=== PATIENT | male | born 1995 | race African-American/Black ===

== ENCOUNTER 2018-05-04 10:17 | Emergency (ER) | payer MEDICAID ==
[~2018-05-04] VITALS: Ht 185.4 cm; Wt 81.6 kg
[2018-05-04] MEDS ORDERED: OXYMETAZOLINE 0.05% NASAL SPRAY 15ML BOTTLE. NS ONE (10:45)
--- NOTE | 2018-05-04 10:56 | PHYS DOC ---
Past History Past Medical History: No Pertinent History Past Surgical History: No Surgical History Smoking: Non-smoker Alcohol Use: None Drug Use: None Adult General Chief Complaint Chief Complaint: NOSEBLEED HPI HPI Patient is a 23 year old male who presents with complaining of nosebleed. Patient states he had history of frequent episodes of epistaxis since childhood that partially improved. Patient states he had nasal congestion and cold symptoms recently. Patient states he was playing basketball yesterday and had left sided nasal bleeding that last about couple hours. Patient states he had another episode of nosebleed since 9 AM today during playing basketball and his assistant football coach recommended to come to emergency room because it did not stop yesterday. Patient denies bleeding problem, other bleeding, injury. Review of Systems Review of Systems Constitutional: Denies fever or chills [] Eyes: Denies change in visual acuity, redness, or eye pain [] HENT: Reports nasal congestion . Respiratory: Denies cough or shortness of breath [] Cardiovascular: No additional information not addressed in HPI [] GI: Denies abdominal pain, nausea, vomiting, bloody stools or diarrhea [] : Denies dysuria or hematuria [] Musculoskeletal: Denies back pain or joint pain [] Integument: Denies rash or skin lesions [] Neurologic: Denies headache, focal weakness or sensory changes [] Endocrine: Denies polyuria or polydipsia [] All other systems were reviewed and found to be within normal limits, except as documented in this note. Current Medications Current Medications Current Medications Medications (Trade) Dose Ordered Sig/Farooq Start Time Stop Time Status Last Admin Dose Admin Oxymetazoline HCl (Afrin) 2 spray 1X ONCE 05/04/18 10:45 05/04/18 10:46 UNV Allergies Allergies Allergies Coded Allergies Type Severity Reaction Last Updated Verified No Known Drug Allergies 05/04/18 No Physical Exam Physical Exam Constitutional: Well developed, well nourished, mild distress, non-toxic appearance. [] HENT: Normocephalic, atraumatic, bilateral external ears normal, oropharynx moist, no oral exudates, right nasal exam on erythema and congestion, left distal erythema and congestion with dried blood without active bleeding . Eyes: PERRLA, EOMI, conjunctiva normal, no discharge. [] Neck: Normal range of motion, no tenderness, supple, no stridor. [] Cardiovascular:Heart rate regular rhythm, no murmur [] Lungs & Thorax: Bilateral breath sounds clear to auscultation [] Skin: Warm, dry, no erythema, no rash. [] Back: No tenderness, no CVA tenderness. [] Extremities: No tenderness, no cyanosis, no clubbing, ROM intact, no edema. [] Neurologic: Alert and oriented X 3, normal motor function, normal sensory function, no focal deficits noted. [] Psychologic: Affect normal, judgement normal, mood normal. [] Current Patient Data Vital Signs Vital Signs Date Time Temp Pulse Resp B/P (MAP) Pulse Ox O2 Delivery O2 Flow Rate FiO2 05/04/18 10:17 98.2 55 18 95 Room Air EKG EKG [] Radiology/Procedures Radiology/Procedures [] Course & Med Decision Making Course & Med Decision Making Evaluation of patient in ER showed 23-year-old male patient with episodes of nasal bleeding since yesterday and recent cold symptoms. Bleeding is stopped at arrival of patient to ER. Afrin nasal spray was applied in left nose and patient instructed to use local pressure during episodes of bleeding and use normal saline for prevention of dry mucosa. Dragon Disclaimer Dragon Disclaimer This electronic medical record was generated, in whole or in part, using a voice recognition dictation system. Departure Departure: Impression: Primary Impression: Frequent epistaxis Disposition: HOME, SELF-CARE (at 11 00) Condition: IMPROVED Referrals: NON,STAFF (PCP) Patient Instructions: Nosebleed Additional Instructions: Apply local pressure on your nose to stop bleeding Use over the counter normal saline nasal spray 3-4 times a day Follow-up with your primary care physician in 3-5 days Return to ER if not getting better Use dispensed nasal Afrin spray during episodes of nasal bleeding SHANA LOUIS MD May 04, 2018 10:56
[2018-05-04 11:15] VITALS: BP 159/90
== END 2018-05-04 11:15 | disposition home or self-care (01) ==
LOC: ER 10:17
DX: R04.0 Epistaxis (principal); R09.81 Nasal congestion
CPT/HCPCS: 99282

== ENCOUNTER 2018-08-11 14:21 | Emergency (ER) | payer MEDICAID ==
[~2018-08-11] VITALS: Ht 188 cm; Wt 86.2 kg
[2018-08-11 14:28] VITALS: BP 147/77
[2018-08-11] MEDS ORDERED: IV NORMAL SALINE 1,000ML 1,000 ML IV SCH (14:34)
--- NOTE | 2018-08-11 15:11 | PHYS DOC ---
Past History Past Medical History: No Pertinent History Past Surgical History: No Surgical History Smoking: Non-smoker Alcohol Use: None Drug Use: None Adult General Chief Complaint Chief Complaint: MULTIPLE COMPLAINTS HPI HPI Patient is a 23 year old male who presents with complaint of recurrent nosebleeds. The patient states that he has been dealing with recurrent nosebleeds for several years. The patient states that he typically has nosebleeds in the right nostril but today he became concerned because he had a bleed from his left nostril. Bleeding however has stopped prior to arrival. He states that he has been treated in the past for similar symptoms. Was seen in the emergency department on May 04. The patient was recommended to use daily nasal saline and was also recommended to use Afrin as needed for bleeding. He states that he did try this off and on but it did not resolve the problem so he stopped using them. The patient is not currently following with a primary doctor at this time. 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 He does note that he has had an increase in episodes of epistaxis during practice. No recent trauma. Review of Systems Review of Systems Constitutional: Denies fever or chills [] Eyes: Denies change in visual acuity, redness, or eye pain [] HENT: Nosebleeds[] Respiratory: Denies cough or shortness of breath [] Cardiovascular: Denies chest pain or edema[] GI: Denies abdominal pain, nausea, vomiting, bloody stools or diarrhea [] : Denies dysuria or hematuria [] Musculoskeletal: Denies back pain or joint pain [] Integument: Denies rash or skin lesions [] Neurologic: Denies headache, focal weakness or sensory changes [] All other systems were reviewed and found to be within normal limits, except as documented in this note. Current Medications Current Medications Current Medications Medications (Trade) Dose Ordered Sig/Farooq Start Time Stop Time Status Last Admin Dose Admin Lorazepam (Ativan) 1 mg PRN Q10MIN PRN 08/11/18 14:45 08/11/18 14:45 DC Sodium Chloride 1,000 ml @ 1,000 mls/hr Q1H 08/11/18 14:34 08/11/18 14:39 DC Allergies Allergies Allergies Coded Allergies Type Severity Reaction Last Updated Verified No Known Drug Allergies 05/04/18 No Physical Exam Physical Exam Constitutional: Well developed, well nourished, no acute distress, non-toxic appearance. [] HENT: Normocephalic, atraumatic, bilateral external ears normal, oropharynx moist, no oral exudates, significant nasal dryness with moderate nasal mucosal edema, no active bleeding. [] Eyes: PERRLA, EOMI, conjunctiva normal, no discharge. [] Neck: Normal range of motion, no tenderness, supple, no stridor. [] Cardiovascular:Heart rate regular rhythm, no murmur [] Lungs & Thorax: Bilateral breath sounds clear to auscultation [] Abdomen: Bowel sounds normal, soft, no tenderness, no masses, no pulsatile masses. [] Skin: Warm, dry, no erythema, no rash. [] Back: No tenderness, no CVA tenderness. [] Extremities: No tenderness, no cyanosis, no clubbing, ROM intact, no edema. [] Neurologic: Alert and oriented X 3, normal motor function, normal sensory function, no focal deficits noted. [] Current Patient Data Vital Signs Vital Signs Date Time Temp Pulse Resp B/P (MAP) Pulse Ox O2 Delivery O2 Flow Rate FiO2 08/11/18 14:28 98.0 68 18 98 Room Air Lab Results Not performed EKG EKG Not performed[] Radiology/Procedures Radiology/Procedures Not performed[] Course & Med Decision Making Course & Med Decision Making Pertinent Labs and Imaging studies reviewed. (See chart for details) The patient's exam shows significant dryness which is likely contributing to the patient's frequent nosebleeds. Also noted significant inflammation that may benefit from use of daily Flonase. Recommended daily Flonase and use of nasal saline spray. Also recommended use of humidifier at nighttime. Provided information for local family medicine clinics to try and establish primary care follow-up in the next 1-2 weeks. Advised return to emergency department for any worsening symptoms. Patient voiced understanding and in agreement with treatment plan.[] Dragon Disclaimer Dragon Disclaimer This electronic medical record was generated, in whole or in part, using a voice recognition dictation system. Departure Departure: Impression: Primary Impression: Frequent epistaxis Disposition: HOME, SELF-CARE Condition: IMPROVED Referrals: PCP,NO (PCP) Patient Instructions: Nosebleed Additional Instructions: Return to the emergency department for any worsening symptoms. Scripts Sodium Chloride (SALINE NASAL SPRAY) 30 Ml [place] 1-2 SPR NS Q2HR, #30 ML Prov: VALERIE GODOY MD 08/11/18 Fluticasone Propionate (Flonase Allergy Relief) 9.9 Ml [place].susp 2 SPRAYS NS DAILY, #1 BOTTLE Prov: VALERIE GODOY MD 08/11/18 VALERIE GODOY MD Aug 11, 2018 15:11
[2018-08-11] MEDS ORDERED: FLUT9.9S NS (15:25)
[2018-08-11] MEDS ORDERED: SODI30SP NS (15:25)
== END 2018-08-11 15:30 | disposition home or self-care (01) ==
LOC: ER 14:21
DX: R04.0 Epistaxis (principal)
CPT/HCPCS: 99283